=== PATIENT | male | born 1960 | race Caucasian/White ===

== ENCOUNTER 2018-11-21 02:05 | Emergency (ER) | payer MEDICAID ==
[~2018-11-21] VITALS: Ht 167.6 cm; Wt 80.0 kg
[2018-11-21] MEDS ORDERED: ATOR10TA84 PO (02:36)
[2018-11-21] MEDS ORDERED: METF-960 PO (02:36)
[2018-11-21] MEDS ORDERED: MIRT30 PO (02:36)
[2018-11-21] MEDS ORDERED: GABA-529 PO (02:36)
[2018-11-21] MEDS ORDERED: TAMS-1 PO (02:36)
[2018-11-21] MEDS ORDERED: CYCLOBENZAPRINE HCL 10 MG TABLET PO ONE (03:00)
[2018-11-21] MEDS ORDERED: KETOROLAC TROMETHAMINE 60 MG/2 ML VIAL IM ONE (03:00)
[2018-11-21] MEDS ORDERED: MethylPREDNISolone SOD SUCC 125 MG/2 ML VIAL IM ONE (04:30)
[2018-11-21] MEDS ORDERED: HYDROCODONE/ACETAMINOPHEN 5-325 MG TABLET PO ONE (04:30)
[2018-11-21 05:25] VITALS: BP 132/74
[2018-11-21 07:19] LABS: GLUCOSE,POINT OF CARE 109 MG/DL (70-110)
== END 2018-11-21 05:29 | disposition home or self-care (01) ==
LOC: EMS 02:09
DX: M54.5 Low back pain (principal); I10 Essential (primary) hypertension; E78.00 Pure hypercholesterolemia, unspecified; F17.210 Nicotine dependence, cigarettes, uncomplicated; Z79.899 Other long term (current) drug therapy; Z79.84 Long term (current) use of oral hypoglycemic drugs; X50.9XXA Other and unspecified overexertion or strenuous movements or postures, initial encounter; Y93.89 Activity, other specified; Y92.89 Other specified places as the place of occurrence of the external cause; Y99.8 Other external cause status
CPT/HCPCS: 82962; 96372; 99283; J1885; J2930

== ENCOUNTER 2019-02-04 07:09 | Emergency (ER) | payer MEDICAID ==
[~2019-02-04] VITALS: Ht 167.6 cm; Wt 98.8 kg
[~2019-02-04 07:09] MED LIST: ATOR10TA84 PO; GABA-529 PO; METF-960 PO; MIRT30 PO; TAMS-1 PO
[2019-02-04] MEDS ORDERED: SODIUM CHLORIDE 0.9% 100 ML ONE (07:15)
[2019-02-04] MEDS ORDERED: IOVERSOL 350 MG/ML 100 ML VIAL ONE (07:15)
[2019-02-04 07:20] LABS: BASOPHILS % (AUTO) 1.1 % (0.0-2.0); EOSINOPHILS % (AUTO) 8.4 % (1.0-6.0); HEMATOCRIT 41.7 % (41-53); HEMOGLOBIN 13.9 g/dL (13.5-17.5); LYMPHOCYTES % (AUTO) 32.3 % (22.0-44.0); MEAN CORPUSCULAR HEMOGLOBIN 32.2 pg (26.0-34.0); MEAN CORPUSCULAR HGB CONC 33.3 G/dL (31.0-37.0); MEAN CORPUSCULAR VOLUME 97 fL (80-100); MONOCYTES # (AUTO) 0.7 K/uL (0.1-1.0); MONOCYTES % (AUTO) 7.6 % (2.0-9.0); NEUTROPHILS # (AUTO) 4.6 K/uL (1.8-7.7); NEUTROPHILS % (AUTO) 50.6 % (40.0-70.0); PLATELET COUNT (AUTO) 306 K/uL (150-450); RED BLOOD CELL COUNT(AUTO) 4.31 MIL/uL (4.50-5.90); RED CELL DISTRIBUTION WIDTH 13.6 % (11.5-14.5)
[2019-02-04 07:34] LABS: PROTHROMBIN TIME 10.4 SEC (9.4-11.6)
[2019-02-04 07:42] LABS: ANION GAP 9 mmol/L (8-16); CARBON DIOXIDE 25 mmol/L (22-29); CHLORIDE 108 mmol/L (98-107); CREATININE 0.93 mg/dL (0.60-1.30); GLOMERULAR FILTR. RATE CALC > 60 mL/min (>60); GLUCOSE,RANDOM 155 mg/dL (70-110); POTASSIUM 3.9 mmol/L (3.5-5.1); SODIUM SERUM 142 mmol/L (136-145); UREA NITROGEN, BLOOD 19 mg/dL (7-18)
[2019-02-04 07:47] LABS: ALANINE AMINOTRANSFERASE 25 U/L (12-78); ALBUMIN 3.3 g/dL (3.4-5.0); ALKALINE PHOSPHATASE 102 U/L (46-116); ASPARTATE AMINOTRANSFERASE 21 U/L (15-37); BILIRUBIN,TOTAL 0.4 mg/dL (0.1-1.0); TOTAL PROTEIN, SERUM 6.8 g/dL (6.4-8.2)
[2019-02-04] MEDS ORDERED: HTN MED PO (07:55)
[2019-02-04] MEDS ORDERED: ALTEPLASE PER STROKE PROTOCOL CLINICAL ONE (08:00)
[2019-02-04] MEDS ORDERED: ALTEPLASE IV ONE ×2 (08:00)
[2019-02-04] MEDS ORDERED: WATER FOR INJECTION STERILE IV ONE ×2 (08:00)
[2019-02-04] MEDS ORDERED: SODIUM CHLORIDE 0.9% 250 ML IV ONE (08:09)
[2019-02-04 10:30] VITALS: BP 149/92
== END 2019-02-04 09:52 | disposition short-term general hospital (02) ==
LOC: EMS 07:10
DX: I63.9 Cerebral infarction, unspecified (principal); E11.9 Type 2 diabetes mellitus without complications; I10 Essential (primary) hypertension; F17.210 Nicotine dependence, cigarettes, uncomplicated; Z79.84 Long term (current) use of oral hypoglycemic drugs
CPT/HCPCS: 36415; 37195; 70450; 70496; 71045; 80053; 84484; 85025; 85610; 93005; 99291; J2997; J7050 ×2; Q9967